=== PATIENT | female | born 1940 | race Two or more races ===

== ENCOUNTER 2017-10-16 10:57 | Emergency (ER) | payer OTHER ==
[~2017-10-16] VITALS: Ht 154.9 cm; Wt 83.9 kg
[~2017-10-16 10:57] MED LIST: ACUPRIL; AKTOB5 ML; ALBAFORT325 ( 65 ) PO; ASPIR-MOX 325325 MG; AVALIDE 300-251 TAB; AVAPRO300 MG; BACTRIM DS TABL1 TAB PO; BYSTOLIC10 MG; BYSTOLIC5 MG; CATAPRES0.1 MG; CATAPRES0.2 MG; CELEBREX100 MG PO; COREG CR10 MG PO; DURICEF; ECOTRIN81 MG; FLOVENT DISKU100 MCG IH; GABAPENTIN800 MG; GENTAK3.5 GM; GLYBURIDE MICRON6 MG; GLYNASE6 MG PO; INTESTINEX1 CAP PO; ISORDIL10 MG PO; KEFLEX500 MG PO; LASIX20 MG; LASIX20 MG PO; LEVAQUIN500 MG PO; LOTREL 10/40 MG1 CAP PO; LYRICA 75MG; NEURAXON500 MG PO; NEURONTIN300 MG; NEURONTIN800 MG PO; NORVASC5 MG PO; NOVOLIN N100 U/ML SQ; NOVOLOG100 U/M1 SQ; OMEPRAZOLE20 MG; PENTOPAK400 MG; PERSANTINE25 MG; PLAVIX75 MG; PROCARDIA90 MG/BLIS PO; TEKTURNA150 MG PO; TENTRAL; TOBRADEX EYE DR10 ML OP; ULTRACET PO; URIN D.S. TABLE1 TAB; VYTORIN 10-20 M1 TAB PO; ZANTAC150 MG; ZOCOR40 MG
[2017-10-16] MEDS ORDERED: HUMULIN N100 UNIT/2 (11:21)
[2017-10-16] MEDS ORDERED: HUMALOG100 UNIT/1 (11:21)
[2017-10-16] MEDS ORDERED: DESPEC-DM TABL1 EAC1 PO (18:32)
[2017-10-16] MEDS ORDERED: XOPENEX CO1.25 MG/0. IH (18:32)
== END 2017-10-16 18:48 | disposition home or self-care (01) ==
LOC: ER 10:57
DX: B34.9 Viral infection, unspecified (principal)

== ENCOUNTER 2018-01-08 22:41 | Emergency (ER) | payer OTHER ==
[~2018-01-08] VITALS: Ht 154.9 cm; Wt 84.4 kg
[~2018-01-08 22:41] MED LIST changes: +DESPEC-DM TABL1 EAC1 PO; +HUMALOG100 UNIT/1; +HUMULIN N100 UNIT/2; +XOPENEX CO1.25 MG/0. IH
== END 2018-01-09 11:06 | disposition home or self-care (01) ==
LOC: ER 22:41
DX: K62.5 Hemorrhage of anus and rectum (principal); K52.89 Other specified noninfective gastroenteritis and colitis

== ENCOUNTER 2018-02-02 01:14 | Emergency (ER) | payer OTHER ==
[~2018-02-02] VITALS: Ht 154.9 cm; Wt 84.4 kg
[2018-02-02] MEDS ORDERED: CEFUROXIME500 MG PO (02:28)
[2018-02-02] MEDS ORDERED: ULTRACET PO (02:28)
== END 2018-02-02 02:53 | disposition home or self-care (01) ==
LOC: ER 01:14
DX: H66.92 Otitis media, unspecified, left ear (principal)

== ENCOUNTER → 2018-02-16 09:00 | Outpatient (CLI) | payer OTHER ==
[~2018-02-16 09:00] MED LIST changes: +CEFUROXIME500 MG PO; +CLONIDINE HCL0.2 MG PO; +Coreg 25MG TABLET PO; +FAMOTIDINE20 MG PO; +HUMALOG100 UNIT/1 SUBCUTANEO; +HUMULIN N100 UNIT/2 SUBCUTANEO; +HYDRALAZINE HCL25 MG PO; +ISOSORBIDE DINI20 MG PO; +NEURONTIN300 MG PO; +NIFEDIPINE ER60 MG PO; +SIMVASTATIN20 MG PO
== END | disposition home or self-care (01) ==
LOC: LAB 09:00 → ADM 12:30 → EDSTATUS 03-01 12:30 → AMB-ENDOS 03-01 12:30
DX: R15.2 Fecal urgency (principal); K57.30 Diverticulosis of large intestine without perforation or abscess without bleeding; D50.8 Other iron deficiency anemias

== ENCOUNTER 2018-02-26 09:00 | Emergency (ER) | payer OTHER ==
[~2018-02-26] VITALS: Ht 162.6 cm; Wt 82.6 kg
[~2018-02-26 09:00] MED LIST changes: -CLONIDINE HCL0.2 MG PO; -Coreg 25MG TABLET PO; -FAMOTIDINE20 MG PO; -HUMALOG100 UNIT/1 SUBCUTANEO; -HUMULIN N100 UNIT/2 SUBCUTANEO; -HYDRALAZINE HCL25 MG PO; -ISOSORBIDE DINI20 MG PO; -NEURONTIN300 MG PO; -NIFEDIPINE ER60 MG PO; -SIMVASTATIN20 MG PO
== END 2018-02-26 19:12 | disposition home or self-care (01) ==
LOC: ER 09:00
DX: I10 Essential (primary) hypertension (principal)

== ENCOUNTER 2018-03-01 08:13 | Emergency (ER) | payer OTHER ==
[~2018-03-01] VITALS: Ht 154.9 cm; Wt 82.6 kg
== END 2018-03-01 11:11 | disposition home or self-care (01) ==
LOC: ER 08:13
DX: R51 Headache (principal); M54.89 Other dorsalgia

== ENCOUNTER 2018-03-02 06:03 | Inpatient (IN) | payer OTHER ==
[~2018-03-02] VITALS: Ht 177.8 cm; Wt 81.6 kg
[2018-03-13] MEDS ORDERED: CLONIDINE HCL0.2 MG PO (14:32)
[2018-03-13] MEDS ORDERED: HUMULIN N100 UNIT/2 SUBCUTANEO (14:32)
[2018-03-13] MEDS ORDERED: ISOSORBIDE DINI20 MG PO (14:32)
[2018-03-13] MEDS ORDERED: NEURONTIN300 MG PO (14:32)
[2018-03-13] MEDS ORDERED: HUMALOG100 UNIT/1 SUBCUTANEO (14:32)
[2018-03-13] MEDS ORDERED: Coreg 25MG TABLET PO (14:32)
[2018-03-13] MEDS ORDERED: SIMVASTATIN20 MG PO (14:32)
[2018-03-13] MEDS ORDERED: FAMOTIDINE20 MG PO (14:32)
[2018-03-13] MEDS ORDERED: NIFEDIPINE ER60 MG PO (14:32)
[2018-03-13] MEDS ORDERED: HYDRALAZINE HCL25 MG PO (14:32)
== END 2018-03-13 18:13 | DRG 64 ==
LOC: ER 06:03 → MEDJ 11:52 → SEC-K 11:52 → MEDI 13:07 → MEDJ 13:07
PROC: BW28ZZZ Computerized Tomography (CT Scan) of Head (ICD-10-PCS; principal; 2018-03-02)
PROC: 4A12X4Z Monitoring of Cardiac Electrical Activity, External Approach (ICD-10-PCS; 2018-03-02)
PROC: B246ZZZ Ultrasonography of Right and Left Heart (ICD-10-PCS; 2018-03-03)
PROC: B020ZZZ Computerized Tomography (CT Scan) of Brain (ICD-10-PCS; 2018-03-03)
PROC: BW28ZZZ Computerized Tomography (CT Scan) of Head (ICD-10-PCS; 2018-03-12)
DX: I63.511 Cerebral infarction due to unspecified occlusion or stenosis of right middle cerebral artery (principal); I50.33 Acute on chronic diastolic (congestive) heart failure; I60.11 Nontraumatic subarachnoid hemorrhage from right middle cerebral artery; G93.6 Cerebral edema; I47.2 Ventricular tachycardia; N17.8 Other acute kidney failure; I13.0 Hypertensive heart and chronic kidney disease with heart failure and stage 1 through stage 4 chronic kidney disease, or unspecified chronic kidney disease; I16.0 Hypertensive urgency; E11.65 Type 2 diabetes mellitus with hyperglycemia; R55 Syncope and collapse; Z95.810 Presence of automatic (implantable) cardiac defibrillator; Z79.4 Long term (current) use of insulin; E11.21 Type 2 diabetes mellitus with diabetic nephropathy; E11.22 Type 2 diabetes mellitus with diabetic chronic kidney disease; N18.3 Chronic kidney disease, stage 3 (moderate); E11.51 Type 2 diabetes mellitus with diabetic peripheral angiopathy without gangrene

== ENCOUNTER 2018-04-30 09:25 | Emergency (ER) | payer OTHER ==
[~2018-04-30] VITALS: Ht 154.9 cm; Wt 78.5 kg
[~2018-04-30 09:25] MED LIST changes: +CLONIDINE HCL0.2 MG PO; +Coreg 25MG TABLET PO; +FAMOTIDINE20 MG PO; +HUMALOG100 UNIT/1 SUBCUTANEO; +HUMULIN N100 UNIT/2 SUBCUTANEO; +HYDRALAZINE HCL25 MG PO; +ISOSORBIDE DINI20 MG PO; +NEURONTIN300 MG PO; +NIFEDIPINE ER60 MG PO; +SIMVASTATIN20 MG PO
== END 2018-04-30 13:14 | disposition home or self-care (01) ==
LOC: ER 09:25
DX: M54.5 Low back pain (principal)

== ENCOUNTER 2018-05-07 12:48 | Outpatient (CLI) | payer OTHER | END 2018-05-07 12:56 | disposition home or self-care (01) | LOC: LAB 12:48 | DX: R31.9 Hematuria, unspecified (principal); Z51.81 Encounter for therapeutic drug level monitoring ==

== ENCOUNTER 2018-12-27 06:30 | Day surgery (SDC) | payer OTHER | END 2018-12-27 09:40 | disposition home or self-care (01) | LOC: AMB-ENDOS 06:30 | DX: K62.1 Rectal polyp (principal) ==

== ENCOUNTER 2019-01-15 08:58 | Outpatient (CLI) | payer OTHER | END 2019-01-15 09:04 | disposition home or self-care (01) | LOC: SONOGRAMA 08:58 | DX: C64.2 Malignant neoplasm of left kidney, except renal pelvis (principal) ==

== ENCOUNTER 2019-05-16 00:01 | Emergency (ER) | payer OTHER ==
[~2019-05-16] VITALS: Ht 152.4 cm; Wt 77.1 kg
[2019-05-16] MEDS ORDERED: ELIQUIS5 M1 (00:20)
[2019-05-16] MEDS ORDERED: ALLEGRA ALLERG180 MG PO (03:04)
== END 2019-05-16 03:25 | disposition home or self-care (01) ==
LOC: ER 00:01
DX: T78.1XXA Other adverse food reactions, not elsewhere classified, initial encounter (principal); R60.0 Localized edema; X58.XXXA Exposure to other specified factors, initial encounter

== ENCOUNTER 2019-07-25 17:44 | Emergency (ER) | payer OTHER ==
[~2019-07-25] VITALS: Ht 154.9 cm; Wt 78.5 kg
[~2019-07-25 17:44] MED LIST changes: +ALLEGRA ALLERG180 MG PO; +ELIQUIS5 M1
[2019-07-25] MEDS ORDERED: LASIX20 MG (18:01)
[2019-07-25] MEDS ORDERED: MONTELUKAST SOD10 MG (18:01)
[2019-07-25] MEDS ORDERED: CILOSTAZOL100 MG (18:01)
== END 2019-07-25 20:18 | disposition home or self-care (01) ==
LOC: ER 17:44
DX: K60.2 Anal fissure, unspecified (principal); K59.09 Other constipation

== ENCOUNTER 2019-12-18 07:37 | Inpatient (IN) | payer OTHER ==
[~2019-12-18] VITALS: Ht 152.4 cm; Wt 90.7 kg
[~2019-12-18 07:37] MED LIST changes: +CILOSTAZOL100 MG; +MONTELUKAST SOD10 MG
[2019-12-18] MEDS ORDERED: CARVEDILOL25 MG (08:07)
--- NOTE | 2019-12-18 08:08 | NUR ---
SE RECIBE PTE ALERTA Y ORIENTADA X3,REFIERE ESTAR [place] POR EL ANO ,REFIERE SER PTE DE LA DRA.MARLA CRABTREE.
--- NOTE | 2019-12-18 08:50 | NUR ---
SE ORIENTA PTE SOBRE EL TRATAMIENTO ORDENADO POR EL DR REARDON PTE ALERTA Y CONCIENTE POR 3 RN PEDRITO REALIZA MUESTRAS DE LABORATORIO PTE SE MANTIENE OBSERVACION Y BAJO TRATAMIENTO
--- NOTE | 2019-12-18 11:39 | NUR ---
SE LLEVA MUESTRA DE TUBO LETI A PTE Y SE LLEVA A BANCO DE SANCRE PARA 2 UNIDADES PRB'S FRACIONADA.
[2019-12-27] MEDS ORDERED: CARAFATE1 GM PO (12:48)
[2019-12-27] MEDS ORDERED: CARVEDILOL25 MG PO (12:48)
[2019-12-27] MEDS ORDERED: HUMALOG100 UNIT/1 SUBCUTANEO (12:48)
[2019-12-27] MEDS ORDERED: HYDRALAZINE HCL25 MG PO (12:48)
[2019-12-27] MEDS ORDERED: MONTELUKAST SOD10 MG PO (12:48)
[2019-12-27] MEDS ORDERED: LASIX20 MG PO (12:48)
[2019-12-27] MEDS ORDERED: NIFE60TA3 PO (12:48)
[2019-12-27] MEDS ORDERED: NEURONTIN300 MG PO (12:48)
[2019-12-27] MEDS ORDERED: HUMULIN N100 UNIT/2 SUBCUTANEO (12:48)
[2019-12-27] MEDS ORDERED: ZOCOR40 MG PO (12:48)
[2019-12-27] MEDS ORDERED: ISOSORBIDE DINI20 MG PO (12:48)
[2019-12-27] MEDS ORDERED: CLONIDINE HCL0.2 MG PO (12:48)
== END 2019-12-27 16:15 | disposition home or self-care (01) | DRG 379 ==
LOC: ER 07:37 → MEDI 12:06 → SEC-K 12:06 → MEDI 15:08
PROVIDERS: ADMIT Internal Medicine Geriatric Medicine; ATTEND Internal Medicine Geriatric Medicine
PROC: 30233N1 Transfusion of Nonautologous Red Blood Cells into Peripheral Vein, Percutaneous Approach (ICD-10-PCS; 2019-12-18)
PROC: 4A12X4Z Monitoring of Cardiac Electrical Activity, External Approach (ICD-10-PCS; 2019-12-18)
PROC: CD171ZZ Planar Nuclear Medicine Imaging of Gastrointestinal Tract using Technetium 99m (Tc-99m) (ICD-10-PCS; 2019-12-20)
PROC: 02HV33Z Insertion of Infusion Device into Superior Vena Cava, Percutaneous Approach (ICD-10-PCS; 2019-12-21)
PROC: 0DB98ZX Excision of Duodenum, Via Natural or Artificial Opening Endoscopic, Diagnostic (ICD-10-PCS; principal; 2019-12-24)
PROC: 3E1H88Z Irrigation of Lower GI using Irrigating Substance, Via Natural or Artificial Opening Endoscopic (ICD-10-PCS; 2019-12-24)
DX: K57.31 Diverticulosis of large intestine without perforation or abscess with bleeding (principal); K62.5 Hemorrhage of anus and rectum; R15.9 Full incontinence of feces; I12.9 Hypertensive chronic kidney disease with stage 1 through stage 4 chronic kidney disease, or unspecified chronic kidney disease; E11.22 Type 2 diabetes mellitus with diabetic chronic kidney disease; E11.65 Type 2 diabetes mellitus with hyperglycemia; N18.2 Chronic kidney disease, stage 2 (mild); Z20.828 Contact with and (suspected) exposure to other viral communicable diseases; Z79.4 Long term (current) use of insulin; Z95.0 Presence of cardiac pacemaker

== ENCOUNTER 2020-03-17 15:38 | Emergency (ER) | payer OTHER ==
[~2020-03-17] VITALS: Ht 154.9 cm; Wt 74.8 kg
[~2020-03-17 15:38] MED LIST changes: +CARAFATE1 GM PO; +CARVEDILOL25 MG; +CARVEDILOL25 MG PO; +MONTELUKAST SOD10 MG PO; +NIFE60TA3 PO; +ZOCOR40 MG PO
== END 2020-03-17 20:38 | disposition home or self-care (01) ==
LOC: ER 15:38
DX: E11.65 Type 2 diabetes mellitus with hyperglycemia (principal); Z79.4 Long term (current) use of insulin

== ENCOUNTER 2020-06-09 06:53 | Emergency (ER) | payer OTHER ==
[~2020-06-09] VITALS: Ht 154.9 cm; Wt 75.7 kg
[2020-06-09] MEDS ORDERED: DAFLONEX-XL 11300 MG PO (07:37)
[2020-06-09] MEDS ORDERED: FOLIVANE-F CAP1 EACH PO (07:37)
[2020-06-09] MEDS ORDERED: FUROSEMIDE20 MG PO (07:38)
[2020-06-09] MEDS ORDERED: NIFEDIPINE ER60 M1 PO (07:38)
[2020-06-09] MEDS ORDERED: CILOSTAZOL100 MG (07:38)
[2020-06-09] MEDS ORDERED: ELIQUIS2.5 MG PO (07:38)
[2020-06-09] MEDS ORDERED: ELIQUIS5 MG PO (07:38)
[2020-06-09] MEDS ORDERED: HUMALOG MI100 UNIT/2 SQ (07:38)
[2020-06-09] MEDS ORDERED: HUMALOG MI100 UNIT/1 SQ (07:39)
[2020-06-09] MEDS ORDERED: ISOSORBIDE MONO30 M2 PO (07:39)
== END 2020-06-09 08:25 | disposition home or self-care (01) ==
LOC: ER 06:53
DX: T22.111A Burn of first degree of right forearm, initial encounter (principal); R60.0 Localized edema; T79.8XXA Other early complications of trauma, initial encounter; X19.XXXA Contact with other heat and hot substances, initial encounter; Y93.G3 Activity, cooking and baking; Y92.89 Other specified places as the place of occurrence of the external cause; Y99.8 Other external cause status

== ENCOUNTER 2020-12-14 07:31 | Outpatient (CLI) | payer OTHER ==
[~2020-12-14 07:31] MED LIST changes: +DAFLONEX-XL 11300 MG PO; +ELIQUIS2.5 MG PO; +ELIQUIS5 MG PO; +FOLIVANE-F CAP1 EACH PO; +FUROSEMIDE20 MG PO; +HUMALOG MI100 UNIT/1 SQ; +HUMALOG MI100 UNIT/2 SQ; +ISOSORBIDE MONO30 M2 PO; +NIFEDIPINE ER60 M1 PO
== END 2020-12-14 07:45 | disposition home or self-care (01) ==
LOC: MAMO-SONO 07:31 → RAD 07:31 → MAMO-SONO 09:15
PROVIDERS: ATTEND Internal Medicine Geriatric Medicine
DX: I10 Essential (primary) hypertension (principal); D63.1 Anemia in chronic kidney disease; D59.4 Other nonautoimmune hemolytic anemias; D55.0 Anemia due to glucose-6-phosphate dehydrogenase [G6PD] deficiency; Z86.010 Personal history of colon polyps; E08.65 Diabetes mellitus due to underlying condition with hyperglycemia; K64.8 Other hemorrhoids; D50.8 Other iron deficiency anemias; R97.0 Elevated carcinoembryonic antigen [CEA]

== ENCOUNTER → 2020-12-15 07:10 | Outpatient (CLI) | payer OTHER | END | disposition home or self-care (01) | LOC: MAMO-SONO 07:10 | PROVIDERS: ATTEND Internal Medicine Geriatric Medicine | DX: R92.0 Mammographic microcalcification found on diagnostic imaging of breast (principal); N60.11 Diffuse cystic mastopathy of right breast; N60.12 Diffuse cystic mastopathy of left breast; Z12.31 Encounter for screening mammogram for malignant neoplasm of breast; N64.4 Mastodynia; N64.89 Other specified disorders of breast ==

== ENCOUNTER 2021-01-14 13:54 | Outpatient (CLI) | payer OTHER | END 2021-01-14 13:55 | disposition home or self-care (01) | LOC: NUCLEAR 13:54 | PROVIDERS: ATTEND Internal Medicine Geriatric Medicine | DX: M81.0 Age-related osteoporosis without current pathological fracture (principal); M15.0 Primary generalized (osteo)arthritis ==

== ENCOUNTER 2021-05-07 09:00 | Outpatient (CLI) | payer OTHER | END 2021-05-07 09:30 | disposition home or self-care (01) | LOC: PPH VACUNA 09:00 | PROVIDERS: ATTEND Emergency Medicine Pediatric Emergency Medicine | DX: Z23 Encounter for immunization (principal) ==

== ENCOUNTER 2022-01-10 12:14 | Emergency (ER) | payer OTHER ==
[~2022-01-10] VITALS: Ht 154.9 cm; Wt 73.9 kg
== END 2022-01-10 16:39 | disposition home or self-care (01) ==
LOC: ER 12:14
DX: S39.92XA Unspecified injury of lower back, initial encounter (principal); W19.XXXA Unspecified fall, initial encounter; Y93.9 Activity, unspecified; Y92.9 Unspecified place or not applicable; Z88.6 Allergy status to analgesic agent; Z20.822 Contact with and (suspected) exposure to COVID-19; I10 Essential (primary) hypertension

== ENCOUNTER 2022-06-23 07:18 | Outpatient (CLI) | payer OTHER | END 2022-06-23 07:26 | disposition home or self-care (01) | LOC: SONOGRAMA 07:18 | PROVIDERS: ATTEND Urology | DX: N28.1 Cyst of kidney, acquired (principal); N39.41 Urge incontinence; R31.1 Benign essential microscopic hematuria ==

== ENCOUNTER 2022-07-21 06:02 | Emergency (ER) | payer OTHER ==
[~2022-07-21] VITALS: Ht 154.9 cm; Wt 74.4 kg
== END 2022-07-21 14:47 | disposition home or self-care (01) ==
LOC: ER 06:02
DX: R19.7 Diarrhea, unspecified (principal); R50.9 Fever, unspecified; Z20.822 Contact with and (suspected) exposure to COVID-19; R06.02 Shortness of breath; Z88.6 Allergy status to analgesic agent

== ENCOUNTER 2022-10-22 07:25 | Emergency (ER) | payer OTHER ==
[~2022-10-22] VITALS: Ht 154.9 cm; Wt 69.4 kg
== END 2022-10-22 15:07 ==
LOC: ER 07:25
DX: B34.9 Viral infection, unspecified (principal); E11.9 Type 2 diabetes mellitus without complications; Z79.4 Long term (current) use of insulin; I10 Essential (primary) hypertension; Z88.6 Allergy status to analgesic agent; Z87.09 Personal history of other diseases of the respiratory system; Z20.822 Contact with and (suspected) exposure to COVID-19

== ENCOUNTER 2022-11-21 05:55 | Day surgery (SDC) | payer OTHER | END 2022-11-21 10:30 | disposition home or self-care (01) | LOC: AMB-ENDOS 05:55 | PROVIDERS: ATTEND Surgery | DX: D12.3 Benign neoplasm of transverse colon (principal); K57.30 Diverticulosis of large intestine without perforation or abscess without bleeding; Z88.6 Allergy status to analgesic agent; Z20.822 Contact with and (suspected) exposure to COVID-19 ==

== ENCOUNTER 2022-12-15 09:24 | Inpatient (IN) | payer OTHER ==
[~2022-12-15] VITALS: Ht 154.9 cm; Wt 68.5 kg
--- NOTE | 2022-12-15 09:39 | NUR ---
SE RECIBE PTE ALERTA Y ORIENTADO X3 PTE REFIERE DOLOR COSTADO CRIS HACE VARIOS MADRIGAL, SE HOLLY VITALES Y SE LEWIS ANE BHUPENDRA DE ESPERA.
--- NOTE | 2022-12-15 10:36 | NUR ---
PTE ALERTA Y ORIENTADA X3, SE ADMINISTRAN MEDICAMENTOS TOBY ORDEN MEDICA. SE COLECTAN MUESTRAS DE SAIRA BAJO MEDIDAS ASEPTICAS. SE HACE ENTREGA DE ENVASE PARA UC Y UA Y SE ENVIAN LAS MISMAS. SE ORIENTA PTE SOBRE TX MEDICO Y LA MISMA REFIERE ENTENDER.
--- NOTE | 2022-12-15 17:50 | NUR ---
PTE ALERTA Y ORIENTADA X 3 ESFERAS EN COMPANIA DE FAMILIAR,EN JOHNSON CON BARANDAS ELEVADAS,AREA DE VENOPUNCION PATENTE Y JOHAN DE EDEMA CON FLUIDOS DE MANTENIMIENTO.SE LE REPITE MUESTRA BMP BAJO MEDIDAS ASEPTICAS TOBY ORDEN MEDICA DE DR BABB.SE LE ENTREGA DIETA.SE LEWIS BAJO OBSERVACION.
[2022-12-16] MEDS ORDERED: DUI500 PO (13:16)
== END 2022-12-16 14:03 | disposition home or self-care (01) | DRG 683 ==
LOC: ER 09:24 → MEDJ 20:58
PROVIDERS: ADMIT Internal Medicine Geriatric Medicine; ATTEND Internal Medicine Geriatric Medicine
DX: N17.9 Acute kidney failure, unspecified (principal); N39.0 Urinary tract infection, site not specified; I10 Essential (primary) hypertension; E11.8 Type 2 diabetes mellitus with unspecified complications; E11.65 Type 2 diabetes mellitus with hyperglycemia; E78.5 Hyperlipidemia, unspecified; Z20.822 Contact with and (suspected) exposure to COVID-19; E86.0 Dehydration

== ENCOUNTER 2023-02-14 10:59 | Emergency (ER) | payer OTHER ==
[~2023-02-14] VITALS: Ht 154.9 cm; Wt 68.5 kg
[~2023-02-14 10:59] MED LIST changes: +DUI500 PO
== END 2023-02-14 19:21 | disposition home or self-care (01) ==
LOC: ER 10:59
PROVIDERS: Emergency Medicine
DX: K64.4 Residual hemorrhoidal skin tags (principal); Z20.822 Contact with and (suspected) exposure to COVID-19; K57.30 Diverticulosis of large intestine without perforation or abscess without bleeding; K80.20 Calculus of gallbladder without cholecystitis without obstruction; N28.1 Cyst of kidney, acquired; I51.7 Cardiomegaly
CPT/HCPCS: 36415; 74176; 93005; 96365; 99284; J3490

== ENCOUNTER 2023-03-29 09:14 | Emergency (ER) | payer OTHER ==
[~2023-03-29] VITALS: Ht 154.9 cm; Wt 61.2 kg
== END 2023-03-29 13:15 | disposition home or self-care (01) ==
LOC: ER 09:14
DX: M54.89 Other dorsalgia (principal); I10 Essential (primary) hypertension; E11.9 Type 2 diabetes mellitus without complications; Z88.6 Allergy status to analgesic agent
CPT/HCPCS: 72100; 96365; 99283; J1100

== ENCOUNTER 2023-04-22 16:25 | Inpatient (IN) | payer OTHER ==
[~2023-04-22] VITALS: Ht 152.4 cm; Wt 69.4 kg
[2023-04-22 17:27] LABS: HEMATOCRIT 33.6 % (36.0-45.00); HEMOGLOBIN 10.5 g/dL (12.0-15.00); MEAN CELL VOLUME 75.1 fL (80.00-100.00); MEAN CORPUSCULAR HEMOGLOBIN 23.3 pg (27.00-32.0); MEAN CORPUSCULAR HGB CONC 31.1 g/dl (32.0-36.0); PLATELET COUNT 302 K/uL (150-450); RED BLOOD COUNT 4.48 M/uL (4.00-6.00); RED CELL DISTRIBUTION WIDTH 14.4 % (11.5-14.5)
[2023-04-22 18:08] LABS: PH,URINE 7.5 (5.0-8.0); URINE APPEARANCE Clear; URINE BILIRRUBIN Negative (NEGATIVE); URINE BLOOD Trace; URINE COLOR Yellow; URINE GLUCOSE Negative (NEGATIVE); URINE LEUKOCYTE Negative; URINE NITRATE Negative; URINE UROBILINOGEN 0.2 E.U./dl
[2023-04-22 18:12] LABS: URINE BACTERIA 762.1 uL (0.0-1933); URINE EPITHELIAL CELLS 12.6 uL (0.0-38.8); URINE RBC 6.7 uL (0.0-20.8); URINE WBC 8.9 uL (0.0-23.2)
[2023-04-22 18:15] LABS: INR 0.96; PARTIAL THROMBOPLASTIN TIME 27.9 SECONDS (22.0-34.0); PROTHROMBIN TIME 10.1 SECONDS (9.0-11.5)
[2023-04-22 18:16] LABS: URINE PROTEIN 300 (NEGATIVE)
[2023-04-22 18:22] LABS: ABG PH 7.406 (7.35-7.45); ABG PO2 58.6 mmHg (80-100); ABG pCO2 45.3 mmHg (35-45); BASE EXCESS 2.5 mmol/l; BICARBONATE 27.8 mmol/l (23-25); SaO2 90.4 %; Tco2 29.2 mmol/l; o2 21 %
[2023-04-22 18:23] LABS: allen test SATISFACTORY; puncture site RADIAL RIGHT
[2023-04-22 18:58] LABS: CALCIUM 9.7 mg/dL (8.5-10.1); CREATININE SERUM 2.08 mg/dL (0.55-1.02); GFR 22.85; POTASSIUM 4.15 mEq/L (3.5-5.1)
[2023-04-23 01:02] LABS: PHOSPHOKINASE CREATININE 66 U/L (26-192)
[2023-04-23 01:03] LABS: CKMB < 1.0 NG/ML (0.5-3.6)
[2023-04-23 02:13] LABS: ABG PH 7.407 (7.35-7.45); ABG PO2 72.5 mmHg (80-100); ABG pCO2 46.9 mmHg (35-45); BASE EXCESS 3.3 mmol/l; BICARBONATE 28.8 mmol/l (23-25); SaO2 94.6 %; Tco2 30.3 mmol/l; allen test SATISFACTORY; o2 35 %; puncture site RADIAL RIGHT
[2023-04-23 07:40] LABS: PHOSPHOKINASE CREATININE 65 U/L (26-192)
[2023-04-23 08:06] LABS: CKMB < 1.0 NG/ML (0.5-3.6)
[2023-04-23 08:16] LABS: HEMATOCRIT 32.6 % (36.0-45.00); HEMOGLOBIN 9.9 g/dL (12.0-15.00); MEAN CELL VOLUME 74.5 fL (80.00-100.00); MEAN CORPUSCULAR HEMOGLOBIN 22.6 pg (27.00-32.0); MEAN CORPUSCULAR HGB CONC 30.3 g/dl (32.0-36.0); PLATELET COUNT 278 K/uL (150-450); RED BLOOD COUNT 4.37 M/uL (4.00-6.00); RED CELL DISTRIBUTION WIDTH 14.4 % (11.5-14.5)
[2023-04-23 08:18] LABS: PH,URINE 5.5 (5.0-8.0); URINE APPEARANCE Clear; URINE BILIRRUBIN Negative (NEGATIVE); URINE BLOOD NHT; URINE COLOR Yellow; URINE GLUCOSE Negative (NEGATIVE); URINE LEUKOCYTE Negative; URINE NITRATE Negative; URINE UROBILINOGEN 0.2 E.U./dl
[2023-04-23 08:21] LABS: URINE BACTERIA 35.2 uL (0.0-1933); URINE EPITHELIAL CELLS 2.7 uL (0.0-38.8); URINE RBC 108.7 uL (0.0-20.8); URINE WBC 7.2 uL (0.0-23.2)
[2023-04-23 08:46] LABS: URINE PROTEIN 300 (NEGATIVE)
[2023-04-23 09:09] LABS: INR 1.03; PARTIAL THROMBOPLASTIN TIME 31.6 SECONDS (22.0-34.0); PROTHROMBIN TIME 10.8 SECONDS (9.0-11.5)
[2023-04-23 09:12] LABS: ERYTHROCYTE SEDIMENTATION RATE 90 mm/hr
[2023-04-23 11:55] LABS: ABG PH 7.409 (7.35-7.45); ABG pCO2 44.5 mmHg (35-45); BASE EXCESS 2.4 mmol/l; BICARBONATE 27.5 mmol/l (23-25); SaO2 89.8 %; Tco2 28.9 mmol/l; allen test SATISFACTORY; o2 21 %; puncture site RADIAL LEFT
[2023-04-23 12:13] LABS: ALBUMIN 3.5 gm/dL (3.4-5.0); BILIRUBIN TOTAL 0.48 mg/dL (0.3-1.2); BILIRUBIN,CONJUGATED 0.16 mg/dL (0.0-0.2); BILIRUBIN,UNCONJUGATED 0.32 mg/dL (0.0-0.6); CALCIUM 9.1 mg/dL (8.5-10.1); CHOL HDL RATIO 2.1 (0-5.0); CREATININE SERUM 1.9 mg/dL (0.55-1.02); GFR 25.37; GLOBULINA 3.6 G/DL (2.4-3.5); POTASSIUM 4.45 mEq/L (3.5-5.1); TOTAL PROTEIN 7.1 gm/dL (6.4-8.2)
[2023-04-23 12:32] LABS: C-REACTIVE PROTEIN 0.96 MG/DL (0.00-0.29)
[2023-04-23 13:21] LABS: CKMB 1.3 NG/ML (0.5-3.6)
[2023-04-25 13:27] LABS: ABG PH 7.422 (7.35-7.45); ABG pCO2 42.9 mmHg (35-45); BASE EXCESS 2.5 mmol/l; BICARBONATE 27.4 mmol/l (23-25); SaO2 91.3 %; Tco2 28.4 mmol/l; o2 21 %
[2023-04-25 13:28] LABS: ABG PO2 59.9 mmHg (80-100); allen test SATISFACTORY; puncture site RADIAL LEFT
[2023-04-26 06:09] LABS: HEMATOCRIT 33.3 % (36.0-45.00); HEMOGLOBIN 10.1 g/dL (12.0-15.00); MEAN CELL VOLUME 75.3 fL (80.00-100.00); MEAN CORPUSCULAR HEMOGLOBIN 22.9 pg (27.00-32.0); MEAN CORPUSCULAR HGB CONC 30.4 g/dl (32.0-36.0); PLATELET COUNT 244 K/uL (150-450); RED BLOOD COUNT 4.42 M/uL (4.00-6.00)
[2023-04-26 06:48] LABS: ALBUMIN 3.3 gm/dL (3.4-5.0); CREATININE SERUM 2.05 mg/dL (0.55-1.02); GFR 23.24; MAGNESIUM 2.7 mg/dL (1.8-2.4); PHOSPHOROUS 4.3 mg/dL (2.5-4.9); POTASSIUM 4.3 mEq/L (3.5-5.1)
[2023-04-27 08:04] LABS: CALCIUM 8.9 mg/dL (8.5-10.1); CREATININE SERUM 2.3 mg/dL (0.55-1.02); GFR 20.35; MAGNESIUM 2.6 mg/dL (1.8-2.4); PHOSPHOROUS 4.7 mg/dL (2.5-4.9); POTASSIUM 4.36 mEq/L (3.5-5.1)
[2023-04-28 05:22] LABS: HEMATOCRIT 29.1 % (36.0-45.00); MEAN CELL VOLUME 75.7 fL (80.00-100.00); PLATELET COUNT 212 K/uL (150-450); RED BLOOD COUNT 3.85 M/uL (4.00-6.00); RED CELL DISTRIBUTION WIDTH 13.6 % (11.5-14.5)
[2023-04-28 05:23] LABS: HEMOGLOBIN 8.7 g/dL (12.0-15.00); MEAN CORPUSCULAR HEMOGLOBIN 22.5 pg (27.00-32.0)
[2023-04-28 05:59] LABS: CALCIUM 9.1 mg/dL (8.5-10.1); CREATININE SERUM 2.6 mg/dL (0.55-1.02); GFR 17.67; MAGNESIUM 2.4 mg/dL (1.8-2.4); PHOSPHOROUS 4.2 mg/dL (2.5-4.9); POTASSIUM 4.18 mEq/L (3.5-5.1)
[2023-04-28 10:06] LABS: ABG PH 7.379 (7.35-7.45); ABG PO2 59.4 mmHg (80-100); ABG pCO2 46.6 mmHg (35-45); BASE EXCESS 1.1 mmol/l; BICARBONATE 26.9 mmol/l (23-25); SaO2 89.8 %; Tco2 28.3 mmol/l; allen test SATISFACTORY; o2 21 %; puncture site RADIAL RIGHT
[2023-04-29 07:53] LABS: MEAN CELL VOLUME 74.8 fL (80.00-100.00); MEAN CORPUSCULAR HEMOGLOBIN 23.5 pg (27.00-32.0); MEAN CORPUSCULAR HGB CONC 31.4 g/dl (32.0-36.0); PLATELET COUNT 198 K/uL (150-450); RED BLOOD COUNT 3.74 M/uL (4.00-6.00)
[2023-04-29 08:00] LABS: CALCIUM 8.9 mg/dL (8.5-10.1); CREATININE SERUM 2.45 mg/dL (0.55-1.02); GFR 18.92; MAGNESIUM 2.5 mg/dL (1.8-2.4); PHOSPHOROUS 3.7 mg/dL (2.5-4.9); POTASSIUM 4.41 mEq/L (3.5-5.1)
[2023-04-29 08:11] LABS: HEMOGLOBIN 8.8 g/dL (12.0-15.00)
[2023-04-29 15:05] LABS: ABG PH 7.443 (7.35-7.45); ABG PO2 359.5 mmHg (80-100); ABG pCO2 33.2 mmHg (35-45); SaO2 99.9 %
[2023-04-29 15:06] LABS: BASE EXCESS -1.1 mmol/l; BICARBONATE 22.2 mmol/l (23-25); Tco2 23.2 mmol/l; allen test SATISFACTORY; o2 100 %; puncture site RADIAL RIGHT
[2023-04-30 08:15] LABS: HEMATOCRIT 30.3 % (36.0-45.00); HEMOGLOBIN 9.4 g/dL (12.0-15.00); MEAN CORPUSCULAR HEMOGLOBIN 23.2 pg (27.00-32.0); MEAN CORPUSCULAR HGB CONC 30.9 g/dl (32.0-36.0); PLATELET COUNT 208 K/uL (150-450); RED BLOOD COUNT 4.04 M/uL (4.00-6.00); RED CELL DISTRIBUTION WIDTH 13.9 % (11.5-14.5)
[2023-04-30 08:26] LABS: ALBUMIN 2.8 gm/dL (3.4-5.0); BILIRUBIN TOTAL 0.64 mg/dL (0.3-1.2); CALCIUM 8.8 mg/dL (8.5-10.1); CREATININE SERUM 2.49 mg/dL (0.55-1.02); GFR 18.57; GLOBULINA 3.5 G/DL (2.4-3.5); POTASSIUM 4.65 mEq/L (3.5-5.1); TOTAL PROTEIN 6.3 gm/dL (6.4-8.2)
[2023-04-30 09:33] LABS: ABG PH 7.538 (7.35-7.45); ABG PO2 210.4 mmHg (80-100); ABG pCO2 25.2 mmHg (35-45)
[2023-04-30 09:34] LABS: BASE EXCESS 0.2 mmol/l; SaO2 99.8 %; Tco2 21.8 mmol/l; o2 60 %
[2023-04-30 09:35] LABS: allen test SATISFACTORY; puncture site RADIAL RIGHT
[2023-05-01 09:23] LABS: ABG PH 7.284 (7.35-7.45)
[2023-05-01 09:24] LABS: ABG PO2 123.7 mmHg (80-100); ABG pCO2 17.7 mmHg (35-45); BASE EXCESS -15.8 mmol/l; BICARBONATE 8.2 mmol/l (23-25); SaO2 97.9 %; Tco2 8.8 mmol/l; allen test SATISFACTORY; o2 100 %; puncture site RADIAL LEFT
== END 2023-05-01 14:28 | disposition expired | DRG 304 ==
LOC: ER 16:25 → ICU 22:52 → ICU-2 22:52 → ICU 04-23 02:00 → MEDI 04-26 20:40 → ICU 04-29 21:56
PROVIDERS: General Practice; Internal Medicine; ADMIT Internal Medicine Geriatric Medicine; ATTEND Internal Medicine Geriatric Medicine
PROC: BW28ZZZ Computerized Tomography (CT Scan) of Head (ICD-10-PCS; principal; 2023-04-22)
PROC: B24BYZZ Ultrasonography of Heart with Aorta using Other Contrast (ICD-10-PCS; 2023-04-22)
PROC: B345ZZZ Ultrasonography of Bilateral Common Carotid Arteries (ICD-10-PCS; 2023-04-22)
PROC: B54DZZZ Ultrasonography of Bilateral Lower Extremity Veins (ICD-10-PCS; 2023-04-26)
PROC: 5A1945Z Respiratory Ventilation, 24-96 Consecutive Hours (ICD-10-PCS; 2023-04-29)
PROC: 0BH18EZ Insertion of Endotracheal Airway into Trachea, Via Natural or Artificial Opening Endoscopic (ICD-10-PCS; 2023-04-29)
PROC: BW28ZZZ Computerized Tomography (CT Scan) of Head (ICD-10-PCS; 2023-04-30)
DX: I16.9 Hypertensive crisis, unspecified (principal); J96.90 Respiratory failure, unspecified, unspecified whether with hypoxia or hypercapnia; I13.10 Hypertensive heart and chronic kidney disease without heart failure, with stage 1 through stage 4 chronic kidney disease, or unspecified chronic kidney disease; N18.9 Chronic kidney disease, unspecified; E66.9 Obesity, unspecified; Z68.28 Body mass index [BMI] 28.0-28.9, adult; E11.8 Type 2 diabetes mellitus with unspecified complications; Z79.4 Long term (current) use of insulin; E78.5 Hyperlipidemia, unspecified; I48.91 Unspecified atrial fibrillation; I11.0 Hypertensive heart disease with heart failure; I50.9 Heart failure, unspecified; G47.30 Sleep apnea, unspecified; I95.9 Hypotension, unspecified; Z66 Do not resuscitate; D63.8 Anemia in other chronic diseases classified elsewhere